=== PATIENT | female | born 1975 | race African-American/Black ===

== ENCOUNTER 2017-11-08 08:57 | Inpatient (IN) | payer OTHER ==
[2017-11-08 10:11] VITALS: BMI 21.1
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
[2017-11-08] MEDS ORDERED: MAG HYDROX/AL HYDROX/SIMETH 30 ML UNIT-DOSE CUP PO PRN (13:07)
[2017-11-08] MEDS ORDERED: ACETAMINOPHEN 325 MG TABLET (FP) PO PRN (13:07)
[2017-11-08] MEDS ORDERED: chlordiazePOXIDE HCL 25 MG CAPSULE PO PRN (13:07)
[2017-11-08] MEDS ORDERED: NICOTINE POLACRILEX 2 MG GUM BUC PRN (13:07)
[2017-11-08] MEDS ORDERED: MENTHOL/PHENOL 1 EACH UD MM PRN (13:07)
[2017-11-08] MEDS ORDERED: IBUPROFEN 400 MG TABLET (FP) PO PRN (13:07)
[2017-11-08] MEDS ORDERED: MAGNESIUM CITRATE 300 ML BOTTLE PO PRN (13:07)
[2017-11-08] MEDS ORDERED: guaiFENesin/D-METHORPHAN HB 10 ML UNIT-DOSE CUPS PO PRN (13:07)
[2017-11-08] MEDS ORDERED: MAGNESIUM HYDROX 2400MG/30ML ORAL SUSPENSION 30 ML CUP PO PRN (13:07)
[2017-11-08] MEDS ORDERED: P-EPHED 60MG/TRIPROLIDI 2.5MG TABLET PO PRN (13:07)
[2017-11-08] MEDS ORDERED: LOPERAMIDE HCL 2 MG CAPSULE PO PRN (13:07)
[2017-11-08] MEDS ORDERED: ALBUTEROL SO4 18 GM HFA INHALER IH PRN (13:14)
[2017-11-08] MEDS: amLODIPine BESYLATE 5 MG TABLET (FP) PO SCH (14:43)
[2017-11-08] MEDS: NICOTINE 14 MG/24 HOURS TOPICAL PATCH TD SCH (14:44)
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
[2017-11-08] MEDS: chlordiazePOXIDE HCL 25 MG CAPSULE PO SCH ×2 (17:12→22:35)
[2017-11-08] MEDS ORDERED: hydrOXYzine PAMOATE 50 MG CAPSULE (FP) PO PRN (17:44)
[2017-11-08] MEDS: THIAMINE HCL 100 MG TABLET (FP) PO SCH (22:35)
[2017-11-08] MEDS: MELATONIN 5 MG TABLETS PO PRN (22:35)
[2017-11-08 23:31] LABS: URINE APPEARANCE CLEAR; URINE BILIRUBIN NEGATIVE (<2.0 mg/dL); URINE BLOOD 2+ (NEGATIVE); URINE COLOR YELLOW; URINE GLUCOSE (UA) NEGATIVE (NEGATIVE); URINE KETONE 1+ (NEGATIVE); URINE LEUK ESTERASE NEGATIVE (NEGATIVE); URINE NITRITE NEGATIVE (NEGATIVE); URINE PROTEIN NEGATIVE (NEGATIVE); URINE UROBILINOGEN NEGATIVE mg/dL (0.2-1.0)
[2017-11-08 23:58] LABS: EPI CELLS RARE /HPF (FEW); URINE MUCUS RARE
[2017-11-09] MEDS: chlordiazePOXIDE HCL 25 MG CAPSULE PO SCH ×4 (05:47→22:25)
--- NOTE | 2017-11-09 09:38 | EKG ---
Test Reason : Blood Pressure : / mmHG Vent. Rate : 082 BPM Atrial Rate : 082 BPM P-R Int : 148 ms QRS Dur : 080 ms QT Int : 368 ms P-R-T Axes : 022 060 057 degrees QTc Int : 429 ms NORMAL SINUS RHYTHM NORMAL ECG NO PREVIOUS ECGS AVAILABLE Confirmed by IRASEMA MORENO, MARLENY ([id number]) on 11/09/2017 9:37:58 AM Referred By: Confirmed By:MARLENY VILLALPANDO MD
--- NOTE | 2017-11-09 09:54 | PN ---
S CIWA - CIWA Score Nausea/Vomitin-Mild Nausea/No Vomiting Muscle Tremors: 4-Moderate,w/Arms Extend Anxiety: 3 Agitation: 3 Paroxysmal Sweats: 1-Minimal Palms Moist Orientation: 0-Oriented Tacttile Disturbances: 1-Very Mild Itch/Numbness Auditory Disturbances: 0-None Visual Disturbances: 0-None Headache: 1-Very Mild CIWA-Ar Total Score: 14 BHS Progress Note (SOAP) Subjective: I WANT TO SEE THE PSYCHIATRIST SWEAT TREMOR TROUBLE SLEEP AT NIGHT IRRITABLE Objective: 11/09/17 09:53 Vital Signs Temperature 99 F 11/09/17 09:40 Pulse Rate 92 H 11/09/17 09:40 Respiratory Rate 16 11/09/17 09:40 Blood Pressure 116/82 11/09/17 09:40 O2 Sat by Pulse Oximetry (%) Laboratory Last Values Urine Color Yellow 11/08/17 15:53 Urine Appearance Clear 11/08/17 15:53 Urine pH 7.0 (5.0-8.0) 11/08/17 15:53 Ur Specific [place] 1.023 (1.001-1.035) 11/08/17 15:53 Urine Protein Negative (NEGATIVE) 11/08/17 15:53 Urine Glucose (UA) Negative (NEGATIVE) 11/08/17 15:53 Urine Ketones 1+ (NEGATIVE) H 11/08/17 15:53 Urine Blood 2+ (NEGATIVE) H 11/08/17 15:53 Urine Nitrite Negative (NEGATIVE) 11/08/17 15:53 Urine Bilirubin Negative (<2.0 mg/dL) 11/08/17 15:53 Urine Urobilinogen Negative mg/dL (0.2-1.0) 11/08/17 15:53 Ur Leukocyte Esterase Negative (NEGATIVE) 11/08/17 15:53 Urine WBC (Auto) 1 /hpf (3-5) 11/08/17 15:53 Urine RBC (Auto) 7 /hpf (0-3) 11/08/17 15:53 Ur Epithelial Cells Rare /HPF (FEW) 11/08/17 15:53 Urine Mucus Rare 11/08/17 15:53 LAB NOTED Assessment: 11/09/17 09:53 WITHDRAWAL SX MENTAL HEALTH Plan: CONTINUE DETOX PSYCHIATRY REFERRAL
[2017-11-09 10:01] LABS: HEMOGLOBIN 13.3 GM/dL (10.7-15.3); MCH 32.4 pg (25.7-33.7); MCHC 33.4 g/dl (32.0-36.0); MEAN CELL VOLUME 97.1 fl (80-96); MEAN PLT VOLUME 9.8 fl (7.5-11.1); PLATELET COUNT 344 K/MM3 (134-434); RBC 4.12 M/mm3 (3.60-5.2); RDW 13.9 % (11.6-15.6); WHITE BLOOD COUNT 4.9 K/mm3 (4.0-10.0)
[2017-11-09 10:33] LABS: CHLORIDE 101 mmol/L (98-107); SODIUM 138 mmol/L (136-145)
[2017-11-09] MEDS: PRENATAL VITAMINS W/ FOLIC ACID TABLET (FP) PO SCH (10:52)
[2017-11-09] MEDS: amLODIPine BESYLATE 5 MG TABLET (FP) PO SCH (10:52)
[2017-11-09] MEDS: NICOTINE 14 MG/24 HOURS TOPICAL PATCH TD SCH (10:53)
[2017-11-09 11:28] LABS: ALBUMIN 3.9 g/dl (3.4-5.0); ALK PHOS 62 U/L (45-117); ANION GAP 9 (8-16); BILIRUBIN,TOTAL 0.4 mg/dL (0.2-1.0); BLOOD UREA NITROGEN 11 mg/dL (7-18); CALCIUM 9.5 mg/dL (8.5-10.1); CO2 28 mmol/L (21-32); CREATININE 0.8 mg/dL (0.55-1.02); GLUCOSE,RANDOM 95 mg/dL (74-106); SGOT/AST 21 U/L (15-37); SGPT/ALT 31 U/L (12-78); TOT PROT 7.2 g/dl (6.4-8.2)
[2017-11-09] MEDS: MELATONIN 5 MG TABLETS PO PRN (22:25)
[2017-11-09] MEDS: THIAMINE HCL 100 MG TABLET (FP) PO SCH (22:25)
[2017-11-10] MEDS: chlordiazePOXIDE HCL 25 MG CAPSULE PO SCH ×2 (06:14→11:14)
--- NOTE | 2017-11-10 10:57 | PN ---
S CIWA - CIWA Score Nausea/Vomitin-Mild Nausea/No Vomiting Muscle Tremors: 4-Moderate,w/Arms Extend Anxiety: 3 Agitation: 2 Paroxysmal Sweats: 1-Minimal Palms Moist Orientation: 0-Oriented Tacttile Disturbances: 1-Very Mild Itch/Numbness Auditory Disturbances: 0-None Visual Disturbances: 0-None Headache: 0-None Present CIWA-Ar Total Score: 12 BHS Progress Note (SOAP) Subjective: tremor sweat anxiety restlessness trouble sleep at night Objective: 11/10/17 10:59 Vital Signs Temperature 98.2 F 11/10/17 09:20 Pulse Rate 85 11/10/17 09:20 Respiratory Rate 18 11/10/17 09:20 Blood Pressure 101/66 11/10/17 09:20 O2 Sat by Pulse Oximetry (%) Laboratory Last Values WBC 4.9 K/mm3 (4.0-10.0) 11/09/17 05:55 RBC 4.12 M/mm3 (3.60-5.2) 11/09/17 05:55 Hgb 13.3 GM/dL (10.7-15.3) 11/09/17 05:55 Hct 40.0 % (32.4-45.2) 11/09/17 05:55 MCV 97.1 fl (80-96) H 11/09/17 05:55 MCH 32.4 pg (25.7-33.7) 11/09/17 05:55 MCHC 33.4 g/dl (32.0-36.0) 11/09/17 05:55 RDW 13.9 % (11.6-15.6) 11/09/17 05:55 Plt Count 344 K/MM3 (134-434) 11/09/17 05:55 MPV 9.8 fl (7.5-11.1) 11/09/17 05:55 Sodium 138 mmol/L (136-145) 11/09/17 05:55 Potassium 4.0 mmol/L (3.5-5.1) 11/09/17 05:55 Chloride 101 mmol/L (98-107) 11/09/17 05:55 Carbon Dioxide 28 mmol/L (21-32) 11/09/17 05:55 Anion Gap 9 (8-16) 11/09/17 05:55 BUN 11 mg/dL (7-18) 11/09/17 05:55 Creatinine 0.8 mg/dL (0.55-1.02) 11/09/17 05:55 Creat Clearance w eGFR > 60 (>60) 11/09/17 05:55 Random Glucose 95 mg/dL (74-106) 11/09/17 05:55 Calcium 9.5 mg/dL (8.5-10.1) 11/09/17 05:55 Total Bilirubin 0.4 mg/dL (0.2-1.0) 11/09/17 05:55 AST 21 U/L (15-37) 11/09/17 05:55 ALT 31 U/L (12-78) 11/09/17 05:55 Alkaline Phosphatase 62 U/L (45-117) 11/09/17 05:55 Total Protein 7.2 g/dl (6.4-8.2) 11/09/17 05:55 Albumin 3.9 g/dl (3.4-5.0) 11/09/17 05:55 Urine Color Yellow 11/08/17 15:53 Urine Appearance Clear 11/08/17 15:53 Urine pH 7.0 (5.0-8.0) 11/08/17 15:53 Ur Specific [place] 1.023 (1.001-1.035) 11/08/17 15:53 Urine Protein Negative (NEGATIVE) 11/08/17 15:53 Urine Glucose (UA) Negative (NEGATIVE) 11/08/17 15:53 Urine Ketones 1+ (NEGATIVE) H 11/08/17 15:53 Urine Blood 2+ (NEGATIVE) H 11/08/17 15:53 Urine Nitrite Negative (NEGATIVE) 11/08/17 15:53 Urine Bilirubin Negative (<2.0 mg/dL) 11/08/17 15:53 Urine Urobilinogen Negative mg/dL (0.2-1.0) 11/08/17 15:53 Ur Leukocyte Esterase Negative (NEGATIVE) 11/08/17 15:53 Urine WBC (Auto) 1 /hpf (3-5) 11/08/17 15:53 Urine RBC (Auto) 7 /hpf (0-3) 11/08/17 15:53 Ur Epithelial Cells Rare /HPF (FEW) 11/08/17 15:53 Urine Mucus Rare 11/08/17 15:53 RPR Titer Nonreactive (NONREACTIVE) 11/09/17 05:55 lab noted Assessment: 11/10/17 11:00 withdrawal sx Plan: continue detox
[2017-11-10] MEDS: PRENATAL VITAMINS W/ FOLIC ACID TABLET (FP) PO SCH (11:13)
[2017-11-10] MEDS: amLODIPine BESYLATE 5 MG TABLET (FP) PO SCH (11:14)
[2017-11-10] MEDS: NICOTINE 14 MG/24 HOURS TOPICAL PATCH TD SCH (11:15)
--- NOTE | 2017-11-10 16:18 | PN ---
Psychiatric Progress Note Vital Signs: Vital Signs Period Temp Pulse Resp BP Sys/Burns Pulse Ox Last 24 Hr 97.9 F-98.8 F 80-89 16-18 101-109/66-75 Date of Session: 11/10/17 Chief Complaint:: My medications HPI: Patient reports history of depression and anxiety, reports history of taking WellbutrinXL 150mg poqd with good response. Patient wants to restart Wellbutrin at the same dosage. Current Medications: Active Medications Generic Name Dose Route Start Last Admin Trade Name Freq PRN Reason Stop Dose Admin Acetaminophen 650 mg 11/08/17 13:07 Tylenol - PO Q4H PRN FEVER Al Hydroxide/Mg Hydroxide 30 ml 11/08/17 13:07 11/10/17 15:32 Mylanta Oral Suspension - PO 30 ml Q6H PRN Administration DYSPEPSIA Albuterol Sulfate 2 puff 11/08/17 13:14 Ventolin Hfa Inhaler - IH Q4H PRN SHORT OF BREATH/WHEEZING Amlodipine Besylate 5 mg 11/08/17 14:00 11/10/17 11:14 Norvasc - PO 5 mg DAILY MORENITA Administration Chlordiazepoxide HCl 15 mg 11/10/17 17:00 Librium - PO 11/11/17 11:01 [id number] MORENITA Chlordiazepoxide HCl 25 mg 11/08/17 13:07 Librium - PO 11/11/17 13:06 Q4H PRN WITHDRAWAL(CONT SUBST) Chlordiazepoxide HCl 10 mg 11/11/17 17:00 Librium - PO 11/12/17 11:01 [id number] MORENITA Eucalyptus/Menthol/Phenol/Sorbitol 1 each 11/08/17 13:07 Cepastat Lozenge - MM Q4H PRN SORE THROAT Guaifenesin 10 ml 11/08/17 13:07 Robitussin Dm - PO Q6H PRN COUGH Hydroxyzine Pamoate 50 mg 11/08/17 17:44 Vistaril - PO Q4H PRN ANXIETY Ibuprofen 400 mg 11/08/17 13:07 Motrin - PO Q6H PRN PAIN LEVEL 4-6 Loperamide HCl 4 mg 11/08/17 13:07 Imodium - PO Q6H PRN DIARRHEA Magnesium Citrate 300 ml 11/08/17 13:07 Citroma - PO Q48H PRN CONSTIPATION Magnesium Hydroxide 30 ml 11/08/17 13:07 Milk Of Magnesia - PO DAILY PRN CONSTIPATION Melatonin 5 mg 11/08/17 22:00 11/09/17 22:25 Melatonin PO 5 mg HS PRN Administration INSOMNIA Nicotine 14 mg 11/08/17 14:35 11/10/17 11:15 Nicoderm Patch - TD 14 mg DAILY MORENITA Administration Nicotine Polacrilex 2 mg 11/08/17 13:07 Nicorette Gum - BUC Q2H PRN NICOTINE REPLACEMENT RX Multivit/Folic Acid/Iron 1 tab 11/09/17 10:00 11/10/17 11:13 Vitamins (Sjr) - PO 1 tab DAILY MORENITA Administration Pseudoephedrine/Triprolidine 1 combo 11/08/17 13:07 Actifed - PO TID PRN NASAL CONGESTION Thiamine HCl 100 mg 11/08/17 22:00 11/09/17 22:25 Vitamin B1 - PO 100 mg HS MORENITA Administration Medication(s) Change(s): WellbutrinXL 150mg poqd Mental Status Exam - Mental Status Exam Alert and Oriented to: Place, Person Cognitive Function: Fair Patient Appearance: Well Groomed Mood: Apprehensive Affect: Mood Congruent Patient Behavior: Cooperative Speech Pattern: Appropriate Voice Loudness: Normal Thought Process: Goal Oriented Thought Disorder: Being Controlled Hallucinations: Denies Suicidal Ideation: Denies Homicidal Ideation: Denies Insight/Judgement: Fair Sleep: Difficulty falling asleep Appetite: Fair Muscle strength/Tone: Normal Gait/Station: Normal Additional Comments: WellbutrinXL 150mg poqd Psychiatric Treatment Plan - Problem List (1) Alcohol dependence with uncomplicated withdrawal Current Visit: Yes (2) Cocaine dependence Current Visit: Yes (3) Nicotine dependence Current Visit: Yes Qualifiers: Nicotine product type: cigarettes Substance use status: in withdrawal Qualified Code(s): F17.213 - Nicotine dependence, cigarettes, with withdrawal (4) Substance induced mood disorder Current Visit: Yes (5) Weight loss Current Visit: Yes (6) Hypertension Current Visit: Yes Qualifiers: Hypertension type: essential hypertension Qualified Code(s): I10 - Essential (primary) hypertension Initial treatment plan: WellbutrinXL 150mg poqd
[2017-11-10] MEDS: chlordiazePOXIDE 5 MG CAPSULE PO SCH ×2 (18:01→22:32)
[2017-11-10] MEDS: THIAMINE HCL 100 MG TABLET (FP) PO SCH (22:32)
[2017-11-10] MEDS: MELATONIN 5 MG TABLETS PO PRN (22:32)
[2017-11-11] MEDS: chlordiazePOXIDE 5 MG CAPSULE PO SCH (08:05)
[2017-11-11 10:10] VITALS: BP 102/67; PULSE 77; TEMP 98.1
[2017-11-11] MEDS: PRENATAL VITAMINS W/ FOLIC ACID TABLET (FP) PO SCH (10:45)
[2017-11-11] MEDS: amLODIPine BESYLATE 5 MG TABLET (FP) PO SCH (10:45)
[2017-11-11] MEDS: NICOTINE 14 MG/24 HOURS TOPICAL PATCH TD SCH (10:45)
--- NOTE | 2017-11-11 10:45 | PN ---
BHS Progress Note (SOAP) Subjective: PT SEEN WHILE IN BED. SLEEPY BUT AROUSABLE. LIBRIUM TAPERED TO 10 MG. PT LIKELY TO GO TO REHAB TODAY PER COUNSELOR ILIANA. Objective: 11/11/17 10:44 Vital Signs 11/11/17 11/11/17 11/11/17 03:30 07:23 07:50 Temperature 97.5 F L 97.5 F L Pulse Rate 82 79 Respiratory 18 16 16 Rate Blood Pressure 95/73 111/73 11/11/17 10:10 Temperature 98.1 F Pulse Rate 77 Respiratory 18 Rate Blood Pressure 102/67 Laboratory Tests 11/08/17 11/09/17 11/09/17 15:53 05:55 05:55 WBC 4.9 RBC 4.12 Hgb 13.3 Hct 40.0 MCV 97.1 H MCH 32.4 MCHC 33.4 RDW 13.9 Plt Count 344 MPV 9.8 Sodium 138 Potassium 4.0 Chloride 101 Carbon Dioxide 28 Anion Gap 9 BUN 11 Creatinine 0.8 Creat Clearance w eGFR > 60 Random Glucose 95 Calcium 9.5 Total Bilirubin 0.4 AST 21 ALT 31 Alkaline Phosphatase 62 Total Protein 7.2 Albumin 3.9 Urine Color Yellow Urine Appearance Clear Urine pH 7.0 Ur Specific [place] 1.023 Urine Protein Negative Urine Glucose (UA) Negative Urine Ketones 1+ H Urine Blood 2+ H Urine Nitrite Negative Urine Bilirubin Negative Urine Urobilinogen Negative Ur Leukocyte Esterase Negative Urine WBC (Auto) 1 Urine RBC (Auto) 7 Ur Epithelial Cells Rare Urine Mucus Rare RPR Titer 11/09/17 05:55 WBC RBC Hgb Hct MCV MCH MCHC RDW Plt Count MPV Sodium Potassium Chloride Carbon Dioxide Anion Gap BUN Creatinine Creat Clearance w eGFR Random Glucose Calcium Total Bilirubin AST ALT Alkaline Phosphatase Total Protein Albumin Urine Color Urine Appearance Urine pH Ur Specific [place] Urine Protein Urine Glucose (UA) Urine Ketones Urine Blood Urine Nitrite Urine Bilirubin Urine Urobilinogen Ur Leukocyte Esterase Urine WBC (Auto) Urine RBC (Auto) Ur Epithelial Cells Urine Mucus RPR Titer Nonreactive Assessment: 11/11/17 10:44 NAD Plan: POSSIBLE REHAB TODAY IF BED AVAILABLE. MONITOR PT PER PROTOCOL
[2017-11-11] MEDS ORDERED: chlordiazePOXIDE HCL 10 MG CAPSULE PO SCH ×2 (11:00→17:00)
--- NOTE | 2017-11-11 11:33 | DS ---
[facility] Detox Discharge Summary Admission Date: 11/08/17 Discharge Date: 11/11/17 - History Present History: Alcohol Dependence, Cannabis Dependence, Cocaine Dependence Additional Comments: DETOX COMPLETED. ALERT O X 3. NAD. Pertinent Past History: PLEASE SEE DX BELOW - Physical Exam Results Vital Signs: Vital Signs Temperature 98.1 F 11/11/17 10:10 Pulse Rate 77 11/11/17 10:10 Respiratory Rate 18 11/11/17 10:10 Blood Pressure 102/67 11/11/17 10:10 O2 Sat by Pulse Oximetry (%) Pertinent Admission Physical Exam Findings: WITHDRAWAL SX Laboratory Tests 11/08/17 11/09/17 11/09/17 15:53 05:55 05:55 WBC 4.9 RBC 4.12 Hgb 13.3 Hct 40.0 MCV 97.1 H MCH 32.4 MCHC 33.4 RDW 13.9 Plt Count 344 MPV 9.8 Sodium 138 Potassium 4.0 Chloride 101 Carbon Dioxide 28 Anion Gap 9 BUN 11 Creatinine 0.8 Creat Clearance w eGFR > 60 Random Glucose 95 Calcium 9.5 Total Bilirubin 0.4 AST 21 ALT 31 Alkaline Phosphatase 62 Total Protein 7.2 Albumin 3.9 Urine Color Yellow Urine Appearance Clear Urine pH 7.0 Ur Specific [place] 1.023 Urine Protein Negative Urine Glucose (UA) Negative Urine Ketones 1+ H Urine Blood 2+ H Urine Nitrite Negative Urine Bilirubin Negative Urine Urobilinogen Negative Ur Leukocyte Esterase Negative Urine WBC (Auto) 1 Urine RBC (Auto) 7 Ur Epithelial Cells Rare Urine Mucus Rare RPR Titer 11/09/17 05:55 WBC RBC Hgb Hct MCV MCH MCHC RDW Plt Count MPV Sodium Potassium Chloride Carbon Dioxide Anion Gap BUN Creatinine Creat Clearance w eGFR Random Glucose Calcium Total Bilirubin AST ALT Alkaline Phosphatase Total Protein Albumin Urine Color Urine Appearance Urine pH Ur Specific [place] Urine Protein Urine Glucose (UA) Urine Ketones Urine Blood Urine Nitrite Urine Bilirubin Urine Urobilinogen Ur Leukocyte Esterase Urine WBC (Auto) Urine RBC (Auto) Ur Epithelial Cells Urine Mucus RPR Titer Nonreactive - Treatment Hospital Course: Detox Protocol Followed, Detoxed Safely, Responded well, Discharged Condition Good, Rehab Referral Accepted Patient has Accepted a Rehab Referral to: [facility] - Medication Discharge Medications: Ambulatory Orders Bupropion HCl [Wellbutrin Xl -] 150 mg PO DAILY #30 tab.sr.[id number] 11/10/17 - Diagnosis (1) Alcohol dependence with uncomplicated withdrawal Current Visit: Yes Status: Acute (2) Cocaine dependence Current Visit: Yes Status: Acute Qualifiers: Substance use status: uncomplicated Qualified Code(s): F14.20 - Cocaine dependence, uncomplicated (3) Nicotine dependence Current Visit: Yes Status: Acute Qualifiers: Nicotine product type: cigarettes Substance use status: in withdrawal Qualified Code(s): F17.213 - Nicotine dependence, cigarettes, with withdrawal (4) Weight loss Current Visit: Yes Status: Acute (5) Hypertension Current Visit: Yes Status: Chronic Qualifiers: Hypertension type: essential hypertension Qualified Code(s): I10 - Essential (primary) hypertension (6) Cannabis dependence, uncomplicated Current Visit: Yes Status: Acute - AMA Did Patient Leave Against Medical Advice: No
== END 2017-11-11 12:58 | disposition home or self-care (01) | DRG 774 ==
LOC: YASAS 08:57 → Y6N 13:10
PROVIDERS: ADMIT Surgery; ATTEND Surgery
PROC: HZ2ZZZZ Detoxification Services for Substance Abuse Treatment (ICD-10-PCS; principal; 2017-11-08)
DX: F10.230 Alcohol dependence with withdrawal, uncomplicated (principal); F14.20 Cocaine dependence, uncomplicated; F12.20 Cannabis dependence, uncomplicated; F17.210 Nicotine dependence, cigarettes, uncomplicated; F34.1 Dysthymic disorder; F19.24 Other psychoactive substance dependence with psychoactive substance-induced mood disorder; I10 Essential (primary) hypertension; J45.909 Unspecified asthma, uncomplicated; Z87.891 Personal history of nicotine dependence; Z91.5 Personal history of self-harm; Z59.0 Homelessness
CPT/HCPCS: 36415; 80053; 81003; 81015; 85027; 86593; 93005; 93010

== ENCOUNTER 2020-07-07 16:54 | Inpatient (IN) | payer OTHER ==
[2020-07-08] MEDS ORDERED: MAGNESIUM HYDROX 2400MG/30ML ORAL SUSPENSION 30 ML CUP PO PRN (03:38)
[2020-07-08] MEDS ORDERED: LOPERAMIDE HCL 2 MG CAPSULE PO PRN (03:38)
[2020-07-08] MEDS ORDERED: P-EPHED 60MG/TRIPROLIDI 2.5MG TABLET PO PRN (03:38)
[2020-07-08] MEDS ORDERED: ACETAMINOPHEN 325 MG TABLET (FP) PO PRN (03:38)
[2020-07-08] MEDS ORDERED: MAGNESIUM CITRATE 300 ML BOTTLE PO PRN (03:38)
[2020-07-08] MEDS ORDERED: NICOTINE POLACRILEX 2 MG GUM BUC PRN (03:38)
[2020-07-08] MEDS ORDERED: guaiFENesin 200 MG/10 ML 10 ML UNIT-DOSE CUPS PO PRN (03:38)
[2020-07-08] MEDS ORDERED: TUBERCULIN PPD 5 TU/0.1ML VIAL ID ONE (03:51)
[2020-07-08 05:13] VITALS: BMI 19.1
[2020-07-08] MEDS ORDERED: NICOTINE 7 MG/24 HOURS TOPICAL PATCH TD SCH (10:00)
[2020-07-08] MEDS: PRENATAL VITAMINS W/ FOLIC ACID TABLET (FP) PO SCH (10:31)
[2020-07-08] MEDS: NICOTINE 14 MG/24 HOURS TOPICAL PATCH TD SCH (10:32)
[2020-07-08 11:52] LABS: HEMATOCRIT 37.6 % (32.4-45.2); HEMOGLOBIN 12.5 GM/dL (10.7-15.3); MCH 30.1 pg (25.7-33.7); MCHC 33.3 g/dl (32.0-36.0); MEAN CELL VOLUME 90.4 fl (80-96); MEAN PLT VOLUME 8.2 fl (7.5-11.1); PLATELET COUNT 391 K/MM3 (134-434); RBC 4.16 M/mm3 (3.60-5.2); RDW 14.7 % (11.6-15.6)
[2020-07-08 12:01] LABS: POTASSIUM 4.3 mmol/L (3.5-5.1)
[2020-07-08 12:17] LABS: ALBUMIN 3.2 g/dl (3.4-5.0); BLOOD UREA NITROGEN 10.6 mg/dL (7-18)
[2020-07-08 12:20] LABS: CREATININE 0.6 mg/dL (0.55-1.3)
[2020-07-08 12:21] LABS: BILIRUBIN,TOTAL 0.5 mg/dL (0.2-1); TOT PROT 6.5 g/dl (6.4-8.2)
[2020-07-08 13:03] LABS: HIV INTERPRETATION NEGATIVE (NEGATIVE)
[2020-07-08 17:55] LABS: PH,URINE 6.5 (5.0-8.0); URINE APPEARANCE CLEAR; URINE BILIRUBIN NEGATIVE (NEGATIVE); URINE COLOR YELLOW; URINE GLUCOSE (UA) NEGATIVE (NEGATIVE); URINE KETONE NEGATIVE (NEGATIVE); URINE LEUK ESTERASE NEGATIVE (NEGATIVE); URINE NITRITE NEGATIVE (NEGATIVE); URINE PROTEIN NEGATIVE (NEGATIVE); URINE UROBILINOGEN 0.2 mg/dL (0.2-1.0)
[2020-07-08] MEDS: THIAMINE HCL 100 MG TABLET (FP) PO SCH (21:46)
[2020-07-08] MEDS ORDERED: MELATONIN 5 MG TABLETS PO SCH (22:00)
[2020-07-09] MEDS: PRENATAL VITAMINS W/ FOLIC ACID TABLET (FP) PO SCH (10:36)
[2020-07-09] MEDS: NICOTINE 14 MG/24 HOURS TOPICAL PATCH TD SCH (10:36)
[2020-07-09] MEDS: HYDROCORTISONE 2.5% TOPICAL CREAM 30 GM TUBE PR SCH (10:38)
[2020-07-09] MEDS: MELATONIN 5 MG TABLETS PO PRN (21:08)
[2020-07-09] MEDS: THIAMINE HCL 100 MG TABLET (FP) PO SCH (21:08)
[2020-07-09] MEDS: CARBAMIDE PEROXIDE 6.5% OTIC 15 ML BOTTLE AS SCH (21:09)
[2020-07-10] MEDS: PRENATAL VITAMINS W/ FOLIC ACID TABLET (FP) PO SCH (10:37)
[2020-07-10] MEDS: NICOTINE 14 MG/24 HOURS TOPICAL PATCH TD SCH (10:37)
[2020-07-10] MEDS: CARBAMIDE PEROXIDE 6.5% OTIC 15 ML BOTTLE AS SCH ×2 (10:37→21:59)
[2020-07-10] MEDS: HYDROCORTISONE 2.5% TOPICAL CREAM 30 GM TUBE PR SCH (10:37)
[2020-07-10] MEDS: MELATONIN 5 MG TABLETS PO PRN (21:58)
[2020-07-10] MEDS: THIAMINE HCL 100 MG TABLET (FP) PO SCH (21:58)
[2020-07-11] MEDS ORDERED: SELENIUM SULFIDE 2.5% LOTION 4 OZ. TP SCH ×2 (10:00→10:01)
[2020-07-11] MEDS: NICOTINE 14 MG/24 HOURS TOPICAL PATCH TD SCH (11:20)
[2020-07-11] MEDS: CARBAMIDE PEROXIDE 6.5% OTIC 15 ML BOTTLE AS SCH ×2 (11:20→21:18)
[2020-07-11] MEDS: PRENATAL VITAMINS W/ FOLIC ACID TABLET (FP) PO SCH (11:20)
[2020-07-11] MEDS: HYDROCORTISONE 2.5% TOPICAL CREAM 30 GM TUBE PR SCH (11:21)
[2020-07-11] MEDS: SELENIUM SULFIDE 2.5% LOTION 4 OZ. TP SCH (15:13)
[2020-07-11] MEDS: THIAMINE HCL 100 MG TABLET (FP) PO SCH (21:16)
[2020-07-11] MEDS: MELATONIN 5 MG TABLETS PO PRN (21:17)
[2020-07-12] MEDS: HYDROCORTISONE 2.5% TOPICAL CREAM 30 GM TUBE PR SCH (10:43)
[2020-07-12] MEDS: CARBAMIDE PEROXIDE 6.5% OTIC 15 ML BOTTLE AS SCH ×2 (10:43→21:59)
[2020-07-12] MEDS: PRENATAL VITAMINS W/ FOLIC ACID TABLET (FP) PO SCH (10:43)
[2020-07-12] MEDS: NICOTINE 14 MG/24 HOURS TOPICAL PATCH TD SCH (10:43)
[2020-07-12] MEDS: PRAZOSIN HCL 2 MG CAPSULE PO SCH (21:56)
[2020-07-12] MEDS: THIAMINE HCL 100 MG TABLET (FP) PO SCH (21:56)
[2020-07-12] MEDS ORDERED: PT OWN MED DRAWER 7, Y5N ONE (21:57)
[2020-07-13] MEDS: NICOTINE 14 MG/24 HOURS TOPICAL PATCH TD SCH (10:21)
[2020-07-13] MEDS: PRENATAL VITAMINS W/ FOLIC ACID TABLET (FP) PO SCH (10:21)
[2020-07-13] MEDS: PRAZOSIN HCL 2 MG CAPSULE PO SCH ×2 (10:21→21:12)
[2020-07-13] MEDS: HYDROCORTISONE 2.5% TOPICAL CREAM 30 GM TUBE PR SCH (10:21)
[2020-07-13] MEDS: CARBAMIDE PEROXIDE 6.5% OTIC 15 ML BOTTLE AS SCH ×2 (10:21→21:12)
[2020-07-13] MEDS: MELATONIN 5 MG TABLETS PO PRN (21:11)
[2020-07-13] MEDS: THIAMINE HCL 100 MG TABLET (FP) PO SCH (21:12)
[2020-07-13] MEDS: MAG HYDROX/AL HYDROX/SIMETH 30 ML UNIT-DOSE CUP PO PRN (21:26)
[2020-07-14] MEDS: NICOTINE 14 MG/24 HOURS TOPICAL PATCH TD SCH (10:33)
[2020-07-14] MEDS: PRENATAL VITAMINS W/ FOLIC ACID TABLET (FP) PO SCH (10:33)
[2020-07-14] MEDS: HYDROCORTISONE 2.5% TOPICAL CREAM 30 GM TUBE PR SCH (10:34)
[2020-07-14] MEDS: CARBAMIDE PEROXIDE 6.5% OTIC 15 ML BOTTLE AS SCH ×2 (10:34→22:19)
[2020-07-14] MEDS: PRAZOSIN HCL 2 MG CAPSULE PO SCH (10:34)
[2020-07-14] MEDS: MELATONIN 5 MG TABLETS PO PRN (22:18)
[2020-07-14] MEDS: PRAZOSIN HCL 1 MG CAPSULE PO SCH (22:18)
[2020-07-14] MEDS: THIAMINE HCL 100 MG TABLET (FP) PO SCH (22:19)
[2020-07-15] MEDS: PRENATAL VITAMINS W/ FOLIC ACID TABLET (FP) PO SCH (10:43)
[2020-07-15] MEDS: PRAZOSIN HCL 1 MG CAPSULE PO SCH ×2 (10:44→21:25)
[2020-07-15] MEDS ORDERED: PT OWN MED DRAWER 7, Y5N ONE ×3 (10:45→22:03)
[2020-07-15] MEDS: NICOTINE 14 MG/24 HOURS TOPICAL PATCH TD SCH (10:46)
[2020-07-15] MEDS: CARBAMIDE PEROXIDE 6.5% OTIC 15 ML BOTTLE AS SCH ×2 (10:46→21:26)
[2020-07-15] MEDS: HYDROCORTISONE 2.5% TOPICAL CREAM 30 GM TUBE PR SCH (10:46)
[2020-07-15] MEDS: SELENIUM SULFIDE 2.5% LOTION 4 OZ. TP SCH (11:00)
[2020-07-15] MEDS ORDERED: MASKS NR ONE (17:14)
[2020-07-15] MEDS: THIAMINE HCL 100 MG TABLET (FP) PO SCH (21:26)
[2020-07-15] MEDS: MELATONIN 5 MG TABLETS PO PRN (21:26)
[2020-07-16] MEDS ORDERED: PT OWN MED DRAWER 7, Y5N ONE ×2 (08:58→20:20)
[2020-07-16] MEDS: CARBAMIDE PEROXIDE 6.5% OTIC 15 ML BOTTLE AS SCH ×2 (09:34→21:07)
[2020-07-16] MEDS: HYDROCORTISONE 2.5% TOPICAL CREAM 30 GM TUBE PR SCH (09:34)
[2020-07-16] MEDS: PRAZOSIN HCL 1 MG CAPSULE PO SCH ×2 (09:35→21:06)
[2020-07-16] MEDS: NICOTINE 14 MG/24 HOURS TOPICAL PATCH TD SCH (09:35)
[2020-07-16] MEDS: PRENATAL VITAMINS W/ FOLIC ACID TABLET (FP) PO SCH (09:35)
[2020-07-16] MEDS: MELATONIN 5 MG TABLETS PO PRN (21:06)
[2020-07-16] MEDS: THIAMINE HCL 100 MG TABLET (FP) PO SCH (21:06)
[2020-07-17] MEDS ORDERED: PT OWN MED DRAWER 7, Y5N ONE (08:54)
[2020-07-17] MEDS: PRENATAL VITAMINS W/ FOLIC ACID TABLET (FP) PO SCH (10:10)
[2020-07-17] MEDS: PRAZOSIN HCL 1 MG CAPSULE PO SCH ×2 (10:10→21:19)
[2020-07-17] MEDS: HYDROCORTISONE 2.5% TOPICAL CREAM 30 GM TUBE PR SCH (10:11)
[2020-07-17] MEDS: CARBAMIDE PEROXIDE 6.5% OTIC 15 ML BOTTLE AS SCH ×2 (10:11→21:20)
[2020-07-17] MEDS: NICOTINE 14 MG/24 HOURS TOPICAL PATCH TD SCH (10:11)
[2020-07-17] MEDS: MAG HYDROX/AL HYDROX/SIMETH 30 ML UNIT-DOSE CUP PO PRN (13:36)
[2020-07-17] MEDS: THIAMINE HCL 100 MG TABLET (FP) PO SCH (21:19)
[2020-07-17] MEDS: MELATONIN 5 MG TABLETS PO PRN (21:19)
[2020-07-18] MEDS ORDERED: PT OWN MED DRAWER 7, Y5N ONE (09:24)
[2020-07-18] MEDS: PRENATAL VITAMINS W/ FOLIC ACID TABLET (FP) PO SCH (09:53)
[2020-07-18] MEDS: PRAZOSIN HCL 1 MG CAPSULE PO SCH ×2 (09:53→21:17)
[2020-07-18] MEDS: NICOTINE 14 MG/24 HOURS TOPICAL PATCH TD SCH (09:54)
[2020-07-18] MEDS: SELENIUM SULFIDE 2.5% LOTION 4 OZ. TP SCH (09:54)
[2020-07-18] MEDS: HYDROCORTISONE 2.5% TOPICAL CREAM 30 GM TUBE PR SCH (09:54)
[2020-07-18] MEDS: CARBAMIDE PEROXIDE 6.5% OTIC 15 ML BOTTLE AS SCH ×2 (09:55→21:18)
[2020-07-18] MEDS: MAG HYDROX/AL HYDROX/SIMETH 30 ML UNIT-DOSE CUP PO PRN (14:50)
[2020-07-18] MEDS: THIAMINE HCL 100 MG TABLET (FP) PO SCH (21:17)
[2020-07-18] MEDS: MELATONIN 5 MG TABLETS PO PRN (21:17)
[2020-07-19] MEDS: IBUPROFEN 400 MG TABLET (FP) PO PRN (07:30)
[2020-07-19] MEDS ORDERED: PT OWN MED DRAWER 7, Y5N ONE ×2 (08:32→19:51)
[2020-07-19] MEDS: PRENATAL VITAMINS W/ FOLIC ACID TABLET (FP) PO SCH (10:10)
[2020-07-19] MEDS: PRAZOSIN HCL 1 MG CAPSULE PO SCH ×2 (10:12→21:20)
[2020-07-19] MEDS: HYDROCORTISONE 2.5% TOPICAL CREAM 30 GM TUBE PR SCH (10:12)
[2020-07-19] MEDS: NICOTINE 14 MG/24 HOURS TOPICAL PATCH TD SCH (10:12)
[2020-07-19] MEDS: CARBAMIDE PEROXIDE 6.5% OTIC 15 ML BOTTLE AS SCH ×2 (10:12→21:19)
[2020-07-19] MEDS: MELATONIN 5 MG TABLETS PO PRN (21:20)
[2020-07-19] MEDS: THIAMINE HCL 100 MG TABLET (FP) PO SCH (21:20)
[2020-07-20] MEDS ORDERED: PT OWN MED DRAWER 7, Y5N ONE ×2 (09:00→09:20)
[2020-07-20] MEDS: PRENATAL VITAMINS W/ FOLIC ACID TABLET (FP) PO SCH (09:19)
[2020-07-20] MEDS: PRAZOSIN HCL 1 MG CAPSULE PO SCH ×2 (09:19→21:29)
[2020-07-20] MEDS: IBUPROFEN 400 MG TABLET (FP) PO PRN (09:20)
[2020-07-20] MEDS: HYDROCORTISONE 2.5% TOPICAL CREAM 30 GM TUBE PR SCH (09:21)
[2020-07-20] MEDS: NICOTINE 14 MG/24 HOURS TOPICAL PATCH TD SCH (09:22)
[2020-07-20] MEDS: CARBAMIDE PEROXIDE 6.5% OTIC 15 ML BOTTLE AS SCH ×2 (09:22→21:27)
[2020-07-20] MEDS: MAG HYDROX/AL HYDROX/SIMETH 30 ML UNIT-DOSE CUP PO PRN ×2 (15:36→21:28)
[2020-07-20] MEDS: MELATONIN 5 MG TABLETS PO PRN (21:27)
[2020-07-20] MEDS: THIAMINE HCL 100 MG TABLET (FP) PO SCH (21:27)
[2020-07-21] MEDS: IBUPROFEN 400 MG TABLET (FP) PO PRN (06:25)
[2020-07-21] MEDS ORDERED: PT OWN MED DRAWER 7, Y5N ONE (09:23)
[2020-07-21] MEDS: PRENATAL VITAMINS W/ FOLIC ACID TABLET (FP) PO SCH (10:28)
[2020-07-21] MEDS: CARBAMIDE PEROXIDE 6.5% OTIC 15 ML BOTTLE AS SCH (10:29)
[2020-07-21] MEDS: HYDROCORTISONE 2.5% TOPICAL CREAM 30 GM TUBE PR SCH (10:29)
[2020-07-21] MEDS: NICOTINE 14 MG/24 HOURS TOPICAL PATCH TD SCH (10:29)
[2020-07-21] MEDS: THIAMINE HCL 100 MG TABLET (FP) PO SCH (21:16)
[2020-07-21] MEDS: MELATONIN 5 MG TABLETS PO PRN (21:16)
[2020-07-21] MEDS: PRAZOSIN HCL 1 MG CAPSULE PO SCH (21:18)
[2020-07-22] MEDS ORDERED: PT OWN MED DRAWER 7, Y5N ONE ×2 (08:52→20:00)
[2020-07-22] MEDS: NICOTINE 14 MG/24 HOURS TOPICAL PATCH TD SCH (10:11)
[2020-07-22] MEDS: HYDROCORTISONE 2.5% TOPICAL CREAM 30 GM TUBE PR SCH (10:11)
[2020-07-22] MEDS: PRENATAL VITAMINS W/ FOLIC ACID TABLET (FP) PO SCH (10:11)
[2020-07-22] MEDS: SELENIUM SULFIDE 2.5% LOTION 4 OZ. TP SCH (10:11)
[2020-07-22] MEDS: MAG HYDROX/AL HYDROX/SIMETH 30 ML UNIT-DOSE CUP PO PRN (12:43)
[2020-07-22] MEDS: THIAMINE HCL 100 MG TABLET (FP) PO SCH (21:18)
[2020-07-22] MEDS: PRAZOSIN HCL 1 MG CAPSULE PO SCH (21:18)
[2020-07-22] MEDS: MELATONIN 5 MG TABLETS PO PRN (21:18)
[2020-07-23] MEDS: PRENATAL VITAMINS W/ FOLIC ACID TABLET (FP) PO SCH (10:03)
[2020-07-23] MEDS: NICOTINE 14 MG/24 HOURS TOPICAL PATCH TD SCH (10:03)
[2020-07-23] MEDS: HYDROCORTISONE 2.5% TOPICAL CREAM 30 GM TUBE PR SCH (10:04)
[2020-07-23] MEDS: MAG HYDROX/AL HYDROX/SIMETH 30 ML UNIT-DOSE CUP PO PRN (14:02)
[2020-07-23] MEDS: THIAMINE HCL 100 MG TABLET (FP) PO SCH (21:15)
[2020-07-23] MEDS: MELATONIN 5 MG TABLETS PO PRN (21:15)
[2020-07-23] MEDS: PRAZOSIN HCL 1 MG CAPSULE PO SCH (21:15)
[2020-07-24] MEDS: HYDROCORTISONE 2.5% TOPICAL CREAM 30 GM TUBE PR SCH (09:57)
[2020-07-24] MEDS: NICOTINE 14 MG/24 HOURS TOPICAL PATCH TD SCH (09:57)
[2020-07-24] MEDS: PRENATAL VITAMINS W/ FOLIC ACID TABLET (FP) PO SCH (09:57)
[2020-07-24] MEDS: THIAMINE HCL 100 MG TABLET (FP) PO SCH (21:31)
[2020-07-24] MEDS: MELATONIN 5 MG TABLETS PO PRN (21:31)
[2020-07-24] MEDS: PRAZOSIN HCL 1 MG CAPSULE PO SCH (21:31)
[2020-07-25] MEDS ORDERED: PT OWN MED DRAWER 7, Y5N ONE ×3 (09:18→21:28)
[2020-07-25] MEDS: PRENATAL VITAMINS W/ FOLIC ACID TABLET (FP) PO SCH (10:07)
[2020-07-25] MEDS: SELENIUM SULFIDE 2.5% LOTION 4 OZ. TP SCH (10:08)
[2020-07-25] MEDS: IBUPROFEN 400 MG TABLET (FP) PO PRN (10:08)
[2020-07-25] MEDS: HYDROCORTISONE 2.5% TOPICAL CREAM 30 GM TUBE PR SCH (10:08)
[2020-07-25] MEDS: NICOTINE 14 MG/24 HOURS TOPICAL PATCH TD SCH (10:08)
[2020-07-25] MEDS: MELATONIN 5 MG TABLETS PO PRN (21:26)
[2020-07-25] MEDS: THIAMINE HCL 100 MG TABLET (FP) PO SCH (21:26)
[2020-07-25] MEDS: PRAZOSIN HCL 1 MG CAPSULE PO SCH (21:28)
[2020-07-26] MEDS: NICOTINE 14 MG/24 HOURS TOPICAL PATCH TD SCH (09:41)
[2020-07-26] MEDS: PRENATAL VITAMINS W/ FOLIC ACID TABLET (FP) PO SCH (09:41)
[2020-07-26] MEDS: HYDROCORTISONE 2.5% TOPICAL CREAM 30 GM TUBE PR SCH (09:41)
[2020-07-26] MEDS: THIAMINE HCL 100 MG TABLET (FP) PO SCH (21:18)
[2020-07-26] MEDS: PRAZOSIN HCL 1 MG CAPSULE PO SCH (21:18)
[2020-07-26] MEDS: MELATONIN 5 MG TABLETS PO PRN (21:18)
[2020-07-27] MEDS: HYDROCORTISONE 2.5% TOPICAL CREAM 30 GM TUBE PR SCH (09:38)
[2020-07-27] MEDS: PRENATAL VITAMINS W/ FOLIC ACID TABLET (FP) PO SCH (09:38)
[2020-07-27] MEDS: NICOTINE 14 MG/24 HOURS TOPICAL PATCH TD SCH (09:38)
[2020-07-27] MEDS: MAG HYDROX/AL HYDROX/SIMETH 30 ML UNIT-DOSE CUP PO PRN (15:38)
[2020-07-27] MEDS: THIAMINE HCL 100 MG TABLET (FP) PO SCH (21:22)
[2020-07-27] MEDS: MELATONIN 5 MG TABLETS PO PRN (21:22)
[2020-07-27] MEDS: PRAZOSIN HCL 1 MG CAPSULE PO SCH (21:22)
[2020-07-28] MEDS: PRENATAL VITAMINS W/ FOLIC ACID TABLET (FP) PO SCH (09:27)
[2020-07-28] MEDS: HYDROCORTISONE 2.5% TOPICAL CREAM 30 GM TUBE PR SCH (09:28)
[2020-07-28] MEDS: NICOTINE 14 MG/24 HOURS TOPICAL PATCH TD SCH (09:28)
[2020-07-28] MEDS: MAG HYDROX/AL HYDROX/SIMETH 30 ML UNIT-DOSE CUP PO PRN (18:02)
[2020-07-28] MEDS: MELATONIN 5 MG TABLETS PO PRN (21:16)
[2020-07-28] MEDS: PRAZOSIN HCL 1 MG CAPSULE PO SCH (21:16)
[2020-07-28] MEDS: THIAMINE HCL 100 MG TABLET (FP) PO SCH (21:16)
[2020-07-29 06:41] VITALS: BP 103/68; PULSE 70; TEMP 97.8
== END 2020-07-29 08:20 | disposition home or self-care (01) | DRG 772 ==
LOC: YASAS 16:54 → Y3W 07-08 03:40 → Y3E 07-15 10:52
PROVIDERS: ADMIT Allergy & Immunology; ATTEND Allergy & Immunology
PROC: HZ42ZZZ Group Counseling for Substance Abuse Treatment, Cognitive-Behavioral (ICD-10-PCS; principal; 2020-07-08)
DX: F14.20 Cocaine dependence, uncomplicated (principal); F12.20 Cannabis dependence, uncomplicated; F19.20 Other psychoactive substance dependence, uncomplicated; F17.210 Nicotine dependence, cigarettes, uncomplicated; F19.282 Other psychoactive substance dependence with psychoactive substance-induced sleep disorder; F19.24 Other psychoactive substance dependence with psychoactive substance-induced mood disorder; F41.8 Other specified anxiety disorders; F32.9 Major depressive disorder, single episode, unspecified; F43.10 Post-traumatic stress disorder, unspecified; F34.1 Dysthymic disorder; I10 Essential (primary) hypertension; H61.22 Impacted cerumen, left ear; J45.20 Mild intermittent asthma, uncomplicated; L85.3 Xerosis cutis; M19.90 Unspecified osteoarthritis, unspecified site; R45.89 Other symptoms and signs involving emotional state; Z62.810 Personal history of physical and sexual abuse in childhood; R63.4 Abnormal weight loss; Z68.1 Body mass index [BMI] 19.9 or less, adult; Z91.410 Personal history of adult physical and sexual abuse; Z56.0 Unemployment, unspecified; Z59.0 Homelessness; Z91.5 Personal history of self-harm
CPT/HCPCS: 36415; 80053; 81003; 81025; 85027; 86780; 87389; 93005; 93010; C9803; U0003